=== PATIENT | female | born 1965 | race Two or more races ===

== ENCOUNTER 2019-08-20 09:39 | Emergency (ER) | payer OTHER ==
[~2019-08-20] VITALS: Ht 162.6 cm; Wt 64.0 kg
[2019-08-20 09:43] VITALS: BP 126/78
--- NOTE | 2019-08-20 10:28 | RAD ---
Study: CR SHOULDER 2+V LEFT Indication: Left shoulder pain. Comparison: None. Findings: Soft tissue mineralization adjacent to the greater tuberosity appearing within the infraspinatus insertion. The largest focus of mineralization measures 1 cm in length. Glenoid rim more so than medial humeral head osteophytic ridging. No significant AC joint arthrosis. Alignment at the shoulder is maintained. No acute fracture. Impression: 1. Soft tissue mineralization typical of hydroxyapatite deposition favored within the infraspinatus insertion. Calcific tendinitis could account for the patient's pain. 2. No acute osseous abnormality. Mild glenohumeral joint arthrosis. Electronically signed by: PRIMO SMITH MD (08/20/2019 10:25 AM) [id number]
[2019-08-20] MEDS ORDERED: NAPR-682 PO (10:34)
[2019-08-20] MEDS ORDERED: METH4TAB2 PO (10:34)
--- NOTE | 2019-08-20 10:34 | PHYS DOC ---
Past Medical History Past Medical History: No Pertinent History Past Surgical History: No Surgical History Smoking Status: Never Smoker Alcohol Use: None General Adult EDM: Chief Complaint: SHOULDER INJURY HPI: HPI: Patient is a 53 year old female who presents with left shoulder pain that started yesterday. She denies any trauma. She has a lot of pain if she tries to lift the arm. She is never had this before. She denies any falls or heavy lifting. She has not had any fever. She does not have any skin changes. Review of Systems: Review of Systems: General: Denies fever, chills, sweats, fatigue Eyes: Denies drainage, blurred vision, eye redness HENT: Denies rhinorrhea, sore throat, earache Respiratory: Denies cough, shortness of breath, wheezing Cardiac: Denies edema, palpitations, chest pain GI: Denies abdominal pain, Nausea, vomiting MSK: Denies back pain, neck pain Skin: Denies rash, jaundice Neuro: Denies headache, dizziness Psychiatric: Denies SI/HI Heart Score: Risk Factors: Risk Factors: DM, Current or recent (<one month) smoker, HTN, HLP, family history of CAD, obesity. Risk Scores: Score 0 - 3: 2.5% MACE over next 6 weeks - Discharge Home Score 4 - 6: 20.3% MACE over next 6 weeks - Admit for Clinical Observation Score 7 - 10: 72.7% MACE over next 6 weeks - Early Invasive Strategies Allergies: Allergies: Allergies Coded Allergies Type Severity Reaction Last Updated Verified No Known Drug Allergies 08/20/19 No Physical Exam: PE: General: Awake, alert, NAD. Well Nourished, well hydrated. Cooperative HEENT: Atraumatic, EOMI, PERRL, airway patent, moist oral mucosa Neck: Supple, trachea midline Respiratory: CTA bilaterally, normal effort, no wheezing/crackles CV: RRR, no murmur, cap refill <2 GI: Soft, nondistended, nontender, no masses MSK: No obvious deformities, left shoulder tenderness, decreased range of motion due to pain Skin: Warm, dry, intact Neuro: A&O x3, speech NL, sensory and motor grossly intact, no focal deficits Psych: Normal affect, normal mood, not suicidal or homicidal Current Patient Data: Vital Signs: Vital Signs Date Time Temp Pulse Resp B/P (MAP) Pulse Ox O2 Delivery O2 Flow Rate FiO2 08/20/19 09:43 98.4 78 20 126/78 (94) 98 Room Air 98.4 EKG: EKG: [] Radiology/Procedures: Radiology/Procedures: [] Course & Med Decision Making: Course & Med Decision Making Pertinent Labs and Imaging studies reviewed. (See chart for details) Patient is a 53-year-old female who presents to the emergency room with left shoulder pain. Patient's presentation is concerning for bursitis versus calcific tendinitis. X-ray is suggestive of calcific tendinitis. Patient will be treated with steroids and NSAIDs. Will refer her to orthopedic surgery if her symptoms do not improve. Patient's test results and vitals while in the ED were fully reviewed and discussed with the patient. Patient is stable and at this time does not need admission to the hospital. We have discussed strict return precautions and the importance of following up with their Primary Care Physician. Patient stated understanding and was given an opportunity to ask any questions. Patient is in agreement with plan. Kimberlyon Disclaimer: Steven Disclaimer: This electronic medical record was generated, in whole or in part, using a voice recognition dictation system. Departure Departure Impression: Primary Impression: Calcific tendinitis Disposition: 01 HOME, SELF-CARE Condition: GOOD Referrals: KAILYN SANTO [employer] (PCP) Patient Instructions: Calcific Tendinitis Scripts Methylprednisolone (MEDROL) 4 Mg Tab.ds.pk 1 PKG PO UD for inflammation, #1 PKG Prov: JAEL SAWYER MD 08/20/19 Naproxen Sodium (ANAPROX DS) 550 Mg Tablet 1 TAB PO BID for 15 Days, #30 TAB 0 Refills Prov: JAEL SAWYER MD 08/20/19 Justicifation of Admission Dx: Justifications for Admission: Justification of Admission Dx: No JAEL SAWYER MD Aug 20, 2019 10:34
[2019-08-20] MEDS ORDERED: DEXAMETHASONE SOD PHOS 4 MG/ML VIAL PO ONE (10:45)
== END 2019-08-20 10:50 | disposition home or self-care (01) ==
LOC: ER 09:39
DX: M75.32 Calcific tendinitis of left shoulder (principal)
CPT/HCPCS: 73030; 99283; J1100